=== PATIENT | male | born 1955 | race Caucasian/White ===

== ENCOUNTER 2024-10-11 07:49 | Day surgery (SDC) | payer MEDICARE, SELFPAY ==
[2024-10-11] VITALS (8 sets, daily range): BP systolic 115–132; BP diastolic 64–78; BMI 28.0
[2024-10-11] MEDS: NSS 265 ML IV (08:32)
[2024-10-11 08:37] LABS: Glucose - Point of Care 124 mg/dl (70-99)
--- NOTE | 2024-10-11 10:47 | ITS.CL.PN ---
[employer] - Procedure Note
Procedure
Procedure Note:
CARDIAC CATHETERIZATION REPORT
Date of Procedure: 10/11/2024
Referring: Dr. Hay Hurtado DO
Indication: severely elevated coronary artery calcium score
PROCEDURE(S)
1. left heart catheterization
2. coronary angiography
ACCESS: 6F right radial artery (closure: radial band)
CATHETERS
1. 6F JR4
2. 6F JL3.5
MODERATE SEDATION: 25 minutes of moderate sedation was utilized. An independent veterinary medical officer was present to assist with and help manage the patient's level of consciousness and physiologic status.
ULTRASOUND GUIDED VASCULAR ACCESS (right radial artery): Ultrasound was utilized for vascular access. The vessel was visualized under ultrasound and noted to be patent. An image of the vessel was stored permanently in the patient's medical record.
Under direct ultrasound guidance, vascular access was obtained using a modified Seldinger technique and a 6 [place] sheath was placed.
HEMODYNAMIC DATA
LV 101/11 (EDP 20) mmHg
AO 97/65 (mean 79) mmHg
CORONARY ANGIOGRAPHY
Dominance: Right
LM: short vessel without disease
LAD: Large vessel giving rise to a large diagonal branch. There is a focal 50% stenosis in the mid LAD after the diagonal branch and a focal 60% stenosis in the mid to distal LAD. The diagonal branch contains a focal 60% stenosis proximally.
LCx: Large vessel which trifurcates into 3 medium caliber marginal branches. The OM1 has a focal 50% stenosis in both the proximal and mid vessel. The OM 2 is subtotally occluded with NAYELY II flow; the distal vessel fills via left to left distal
collaterals. The OM3 contains a long 95% stenosis in the proximal aspect of the vessel with TIMI3 flow distally.
RCA: Large-caliber vessel giving rise to a small RPDA and several small RPL branches. There there is diffuse moderate disease in the proximal to mid aspect of the RPL1. There is a total occlusion in the RPAV distal to RPL1 with the remainder of the
RPL system filling via R-L collaterals from the distal LCx.
RADIATION: dose 367.46 mGy; DAP 21.6550 Gy*cm2; fluoroscopy time 3.0 min
CONCLUSIONS
1. Three vessel coronary artery disease as described in a right dominant system.
2. Mildly elevated LVEDP and no aortic stenosis
RECOMMENDATIONS
1. Aggressive secondary prevention of coronary artery disease
2. Discussion with patient regarding options for medical management versus revascularization.
Copy to: Dr. Hay Hurtado DO (statistician theoretical); Dr. Lance Green DO (PCP)
Signed: Anton Damon MD, PhD
== END 2024-10-11 12:30 | disposition home or self-care (01) ==
LOC: CATH 07:49
PROVIDERS: ATTENDING PHYSICIAN Student in an Organized Health Care Education/Training Program; FAMILY PHYSICIAN Student in an Organized Health Care Education/Training Program; OTHER PHYSICIAN Internal Medicine Cardiovascular Disease
DX: I25.10 Atherosclerotic heart disease of native coronary artery without angina pectoris (principal); Z79.82 Long term (current) use of aspirin; Z79.899 Other long term (current) drug therapy; I10 Essential (primary) hypertension
CPT/HCPCS: 99152; 99153; 82962; 93458; C1894; Q9967